=== PATIENT | female | born 1995 | race Caucasian/White ===

== ENCOUNTER 2023-07-21 12:53 | Emergency (ER) | payer SELFPAY ==
[2023-07-21 12:55] VITALS: BP 134/93; PULSE 106; RESP 16; TEMP 35.5; O2SAT 98; BMI 49.0
[2023-07-21 13:47] LABS: Mucous, Urine 0 SEEN /hpf (<or=2+); Red Blood Cells-Urine 0 SEEN /hpf (0-5)
[2023-07-21 13:50] LABS: Color, Urine Yellow (Yellow); Glucose, Dipstick Normal (Normal); Ketone-Dipstick Negative (Negative); Leukocyte Esterase-Dipstick 100 /ul (Negative); Nitrite-Dipstick Negative (Negative); Occult Blood-Urine 10 /ul (Negative); Protein-Dipstick 15 mg/dl (Negative); Specific Gravity, Urine 1.015 (1.002-1.030); Urine Bilirubin Dipstick Negative (Negative); Urine Clarity Cloudy (Clear); Urine Urobilinogen 1 mg/dl (Normal)
[2023-07-21 13:54] LABS: Bacteria 1+ /hpf (None Seen); Squamous Epithelial Cells - UA 0-5 SEEN /hpf (5-10); White Blood Cells 0-5 SEEN /hpf (0-5)
[2023-07-21 14:10] LABS: Internal QC Validated? YES +Cl - CLEAR BKGD; Pregnancy, Serum, hCG Quali. NEGATIVE Negative
[2023-07-21 14:41] LABS: Absolute Lymphocyte Count 1.38 X10^3/uL (0.83-4.51); Absolute Neutrophil Count 3.5 X10^3/uL (2.0-7.7); Basophil# 0.02 X10^3/uL; Basophil% 0.3 % (0-1); Eosinophil# 0.12 X10^3/uL; Eosinophils% 2.1 % (0-5); Hematocrit 44.4 % (37-47); Hemoglobin 13.9 g/dL (12.0-15.0); Lymphocyte # 1.38 X10^3/ul (0.83-4.51); Lymphocyte % 24.1 % (19-41); Mean Corp Hgb Conc 31.3 g/dL (32-36); Mean Corpuscular Hgb 26.5 pg (27.0-32.0); Mean Corpuscular Volume 84.7 fL (81-99); Mean Platelet Vol. 9.4 fl (6.2-12.0); Monocyte# 0.66 X10^3/uL; Monocyte% 11.5 % (0-10); NRBC Flagged by Analyzer 0 % (0-5); Neutrophil # 3.52 X10^3/uL (2.7-7.7); Neutrophil % 61.7 % (47-70); Platelet Count 277 K/mm3 (150-450); RBC Distribution Width CV 12.8 % (11.6-14.6); RBC Distribution Width SD 39.2 fl (35.1-43.9); Red Blood Count 5.24 M/mm3 (4.2-5.4); White Blood Count 5.7 K/mm3 (4.4-11.0)
[2023-07-21] MEDS: Ketorolac 15 MG/ML Vial IV (14:59)
[2023-07-21] MEDS: 0.9% Normal Saline (1000mL) 1,000 ML 999 ML IV (15:00)
[2023-07-21 15:01] LABS: ALB/GLOB Ratio 0.8 RATIO (0.9-2.4); AST(SGOT) 33 U/L (15-37); Alanine Aminotransfer ALT/SGPT 35 U/L (13-56); Albumin, Serum 3.2 g/dL (3.2-5.0); Alkaline Phosphatase 97 U/L (45-117); Anion Gap 0 (5-15); BUN 11 mg/dL (7-18); BUN/Creat Ratio 13.2 RATIO (10-20); Calcium,Total 8.6 mg/dL (8.5-10.1); Chloride 107 mmol/L (98-107); Creatinine, Serum 0.83 mg/dL (0.55-1.02); EST Glomerular Filtration Rate 88 mL/min (>60); Est Glom Filt Rate - Afr Amer 106 mL/min (>60); Estimated Creatinine Clearance 84.97 ml/min; Globulin 4.1 g/dL (2.2-4.2); Glucose 96 mg/dL (74-106); Potassium 4.2 mmol/L (3.5-5.1); Protein, Total 7.3 g/dL (6.4-8.2); Sodium Level 137 mmol/L (136-145)
--- NOTE | 2023-07-21 15:11 | CT_ITS ---
STUDY: CT ABDOMEN AND PELVIS WITHOUT CONTRAST REASON FOR EXAM: Female, 28 years old. Left flank pain RADIATION DOSAGE (If Supplied By Facility): CTDIvol = ( 24.04 ) mGy, DLP = ( 1159.15 ) mGycm TECHNIQUE: Transaxial images were obtained from the dome of the diaphragm to the symphysis pubis without oral contrast, and without intravenous contrast. Sagittal and coronal images were reconstructed. Individualized dose optimization techniques were used for this CT. COMPARISON: None. FINDINGS: The visualized lung bases are unremarkable. The visualized portions of the heart are within normal limits. Normal liver. There are surgical clips in the gallbladder fossa consistent with a prior cholecystectomy. Normal spleen. Normal pancreas. Normal bilateral adrenal glands. Normal right kidney. Normal left kidney. Normal visualized stomach. Normal small intestine. Normal colon. The appendix is visualized and appears normal. Normal abdominal aorta. Normal inferior vena cava. Normal retroperitoneum. Normal urinary bladder. Normal abdominal wall. Normal osseous structures. CT/Abdomen/Pelvis without Cont IMPRESSION: Status post cholecystectomy. Electronically Signed: Josafat Burciaga MD at 15:44 EST ,
--- NOTE | 2023-07-21 15:13 | EDS_ITS ---
HPI History of Present Illness Chief Complaint: Flank Pain Narrative Narrative: Patient is a 28-year-old female with history of prior cholecystectomy, kidney stones and acid reflux presenting with worsening flank pain and dizziness. Patient states that started with dull pain in her kidney area 3 days ago and is localized more to the right. She also just feels weak and to the world. She is a decreased appetite. + Mild nausea with food but not otherwise. Feels little dizzy. He has been trying to drink fluids. She did not take anything for pain prior to arrival. Notes that there is been RSV going around the household. Denies any bowel symptoms. Denies any fever or rash. Denies any hematuria or dysuria. No other complaints or concerns at this time. Denies any URI symptoms or cough. PFSH PFSH Home Medications NK 07/21/23 [History Last Taken Unknown] pantoprazole 40 mg tablet,delayed release (Protonix) 40 mg PO DAILY #14 tabs 07/21/23 [Rx Last Taken Unknown] Allergy/AdvReac Type Severity Reaction Status Date / Time Penicillins Allergy Intermediate Swelling Verified 07/21/23 12:57 acetaminophen [From Percocet] Allergy Mild Rash Verified 07/21/23 12:57 oxycodone [From Percocet] Allergy Mild Rash Verified 07/21/23 12:57 Family History Aunt Breast cancer Grandmother Hypertension Other Thyroid disorder Surgical History Hx of cholecystectomy Social History household members: none housing: apartment current occupational status: employed pets and animals: No Smoking Status: Current every day smoker tobacco type: cigarettes ROS ROS ED Constitutional Constitutional ED: Reports other Details: Generalized weakness, malaise ; Denies chills or fever(s) Eyes Eyes: Denies change in vision ENT ENT ED: Denies sore throat Cardiovascular Cardiovascular: Denies chest pain Respiratory/Chest Respiratory/Chest: Denies cough or dyspnea Gastrointestinal Gastrointestinal: Reports abdominal pain, nausea and other Details: Mild epigastric discomfort ; Denies constipation, diarrhea or vomiting Genitourinary Genitourinary ED: Denies dysuria or hematuria Musculoskeletal Musculoskeletal: Reports back pain; Denies arthralgias Integumentary Denies rash Neurologic Neurologic: Denies headache(s), paresthesias or weakness Psychiatric Psychiatric: Denies anxiety Hematologic/Lymphatic Hematologic/Lymphatic: Denies easy bruising EXAM Physical Exam Const Vital Signs: 07/21/23 12:55 Temperature 96 F L Temperature Source Temporal Pulse Rate 106 H Respiratory Rate 16 Blood Pressure 134/93 H Blood Pressure Mean 106 Pulse Ox 98 Oxygen Delivery Method Room Air Positive well nourished and well developed General Appearance ED: well developed and NAD HEENT Reports TM's clear and moist mucous membranes Tympanic Membrane ED: Yes TM's clear Eyes PERRL and EOMs intact bilaterally Neck supple and no JVD Chest Wall inspection of chest normal and palpation of chest normal Resp normal respiratory effort and clear to auscultation bilaterally Cardio regular rate, regular rhythm and no murmurs GI normal to inspection, nondistended, normoactive bowel sounds Palpation: soft and tender epigastric; Negative for guarding Back/Spine Back/Spine Narrative: No midline tenderness. Left lumbar paraspinal present. General Back: Negative for CVA tenderness Cervical Spine: Negative for cervical spine tenderness Thoracic Spine / Upper Back: Negative for thoracic spinal tenderness Extremity normal to inspection General Extremety ED: Negative for edema General Extremity: Negative for edema Neuro oriented x3 Sensorium / Orientation: alert Motor Exam: Negative for general weakness Psych mental status grossly normal Skin no rashes or lesions noted and no wounds MDM MDM MDM Narrative Medical decision making narrative: Patient is evaluated for generalized malaise, fatigue, dizziness and left flank pain. Is been no recent illness at home with RSV but she denies any URI symptoms. Patient appears nontoxic. Vital signs are significant for ta chycardia in triage however patient is not tachycardic on my evaluation. Abdomen is soft, she is mildly tender in her epigastric region but does report history of reflux. Will check a lipase to rule out pancreatitis. Lower suspicion for choledocholithiasis as she has a prior history of cholecystectomy and biliary stent will check liver labs as well. With no respiratory symptoms and clear lung sounds I do not think she requires a chest x-ray. Low suspicion for referred pleuritic pain as the cause of her symptoms. Pain seems more muscle skeletal on exam however will obtain CT abdomen pelvis to evaluate for kidney stone, structural abnormality and other acute intra-abdominal process. CBC, CMP and urinalysis large unremarkable. She does have contaminated urine specimen and will send for culture however given her lack of dysuria or hematuria or frequency will not treat at this time. Low suspicion for pyelonephritis. Patient is evaluated received IV Toradol and fluids. She states she is feeling better. Will get the rest of her IV fluids and be discharged home. Counseled take Tylenol as needed for pain and will start on Protonix for reflux. Given referral for primary care doctor she does not currently have 1. Given return precautions. Discharged home in stable condition. Given a work note states she was seen in the ER today. Lab Data Attestation: I reviewed the patient's lab results. Labs: Laboratory Results - last 24 hr 07/21/23 13:40 WBC 5.7 RBC 5.24 Hgb 13.9 Hct 44.4 MCV 84.7 MCH 26.5 L MCHC 31.3 L RDW Std Deviation 39.2 RDW Coeff of Kendrick 12.8 Plt Count 277 MPV 9.4 Immature Gran % (Auto) 0.300 Neut % (Auto) 61.7 Lymph % (Auto) 24.1 [place] % (Auto) 11.5 H Eos % (Auto) 2.1 Baso % (Auto) 0.3 Absolute Neuts (auto) 3.5 Absolute Lymphs (auto) 1.38 Nucleated RBC % 0 Sodium 137 Potassium 4.2 Chloride 107 Carbon Dioxide 30.0 Anion Gap 0 L BUN 11 Creatinine 0.83 Estim Creat Clear Calc 84.97 Est GFR (MDRD) Af Amer 106 Est GFR (MDRD) Non-Af 88 BUN/Creatinine Ratio 13.2 Glucose 96 Calcium 8.6 Total Bilirubin 0.70 AST 33 ALT 35 Alkaline Phosphatase 97 Total Protein 7.3 Albumin 3.2 Globulin 4.1 Albumin/Globulin Ratio 0.8 L Lipase 32 Serum , Qual NEGATIVE Urine Color Yellow Urine Clarity Cloudy Urine pH 6.0 Ur Specific [place] 1.015 Urine Protein 15 H Urine Glucose (UA) Normal Urine Ketones Negative Urine Occult Blood 10 H Urine Nitrite Negative Urine Bilirubin Negative Urine Urobilinogen 1 H Ur Leukocyte Esterase 100 H Urine RBC 0 SEEN Urine WBC 0-5 SEEN Ur Squamous Epith Cells 0-5 SEEN Urine Bacteria 1+ Urine Mucus 0 SEEN Radiography Diagnostic Testing: Clinical Impression(s) from Imaging Studies Abdomen/Pelvis CT 07/21/23 15:11 IMPRESSION: Status post cholecystectomy. Electronically Signed: Josafat Burciaga MD at 15:44 EST , Discharge Plan Triage Chief Complaint: Flank Pain ED Provider: Izabella Donahue Dx/Rx/DC Orders Clinical Impression: Acute left-sided back pain, Epigastric abdominal pain Instructions: ED Abdominal Pain Unkn Cause Fem, ED Flank Pain, Uncertain Cause Prescriptions: New pantoprazole [Protonix] 40 mg tablet,delayed release (DR/EC) 40 mg PO DAILY Qty: 14 0RF No Action NK Stand Alone Forms: ED Work / School Excuse Primary Care Provider: Care Physician,No Primary Referrals: Ella Lara MD [Med Staff - Social Work Manager] - As soon as possible Care Physician,No Primary [Primary Care Provider] - Activity Restrictions/Additional Instructions: The exact cause of your symptoms or not clear. However at this time you do not appear to have kidney stone, acute infection or other acute surgical or medical abnormality. I question if you have some increased reflux as well as muscle skeletal back pain. Please take Tylenol first-line for your back pain as well as heating pad you can use [id number] 4% Lidoderm patches. Close been prescribed an antacid to take daily to help with your stomach. If your symptoms worsen or progress please return to the emergency room. Disposition Disposition: Home, Self Care
[2023-07-21 15:22] LABS: Lipase 32 U/L (13-75)
[2023-07-21 17:21] VITALS: RESP 16
== END 2023-07-21 17:21 | disposition home or self-care (01) ==
PROVIDERS: Emergency Provider Emergency Medicine; Visit Provider Emergency Medicine
DX: R10.13 Epigastric pain (principal); M54.9 Dorsalgia, unspecified; F17.210 Nicotine dependence, cigarettes, uncomplicated; Z90.49 Acquired absence of other specified parts of digestive tract
CPT/HCPCS: 74176; 80053; 81001; 83690; 84703; 85025; 87086; 96361; 96374; 99283; J7030; A4216